=== PATIENT | female | born 1955 | race Caucasian/White ===

== ENCOUNTER → 2018-12-21 | Outpatient (CLI) | payer BC | LOC: CARD 10:01 | PROVIDERS: ATTEND Internal Medicine Cardiovascular Disease | DX: E78.2 Mixed hyperlipidemia (principal); R00.0 Tachycardia, unspecified; I47.1 Supraventricular tachycardia; I34.0 Nonrheumatic mitral (valve) insufficiency | CPT/HCPCS: 93306 ==